=== PATIENT | female | born 1940 | race Caucasian/White ===

== ENCOUNTER 2016-10-28 13:36 | Outpatient (RCR) ==
[2016-10-28 14:20] VITALS: TEMP 98.1; BMI 35.4
[2016-11-11 14:30] VITALS: BP 118/64
== END 2016-11-25 ==
LOC: CAR.REHAB 13:36
PROVIDERS: ATTEND Internal Medicine
DX: I25.10 Atherosclerotic heart disease of native coronary artery without angina pectoris (principal); Z95.5 Presence of coronary angioplasty implant and graft
CPT/HCPCS: 93798

== ENCOUNTER 2016-11-26 09:15 | Outpatient (RCR) ==
[2016-12-20 14:41] VITALS: BP 108/60
== END 2016-12-26 ==
LOC: CAR.REHAB 09:15
PROVIDERS: ATTEND Internal Medicine
DX: I25.10 Atherosclerotic heart disease of native coronary artery without angina pectoris (principal); Z95.5 Presence of coronary angioplasty implant and graft; I20.9 Angina pectoris, unspecified
CPT/HCPCS: 93798

== ENCOUNTER 2016-12-12 12:01 | Outpatient (CLI) ==
--- NOTE | 2016-12-12 13:16 | DI ---
Exam: Three x-rays of the right foot. Comparison: None available. Reason for exam: Pain. FINDINGS: The imaged osseous structures are diffusely demineralized. No obvious fracture or malali gnment is seen. No unexplained calcific soft tissue densities or radiopaque retained foreign bodies . There is mild degenerative disease seen within the midfoot and phalanges. Impression: No acute fracture or dislocation in the right foot dilatation of the imaged osseous str uctures.
== END 2016-12-12 12:02 | disposition home or self-care (01) ==
LOC: RAD 12:01
PROVIDERS: ATTEND Family Medicine
DX: R52 Pain, unspecified (principal)

== ENCOUNTER 2016-12-27 07:53 | Outpatient (RCR) ==
[2017-01-20 11:54] VITALS: BP 128/58
== END 2017-01-25 ==
LOC: CAR.REHAB 07:53
PROVIDERS: ATTEND Internal Medicine
DX: I25.10 Atherosclerotic heart disease of native coronary artery without angina pectoris (principal); Z95.5 Presence of coronary angioplasty implant and graft; I20.9 Angina pectoris, unspecified
CPT/HCPCS: 93798

== ENCOUNTER 2017-02-26 09:13 | Outpatient (RCR) ==
[2017-03-24 11:57] VITALS: BP 108/58
== END 2017-03-27 ==
LOC: CAR.REHAB 09:13
PROVIDERS: ATTEND Internal Medicine
DX: I25.10 Atherosclerotic heart disease of native coronary artery without angina pectoris (principal); I20.9 Angina pectoris, unspecified; Z95.5 Presence of coronary angioplasty implant and graft
CPT/HCPCS: 93798

== ENCOUNTER 2017-03-28 06:37 | Outpatient (RCR) ==
[2017-04-25 11:46] VITALS: BP 134/56
== END 2017-04-27 ==
LOC: CAR.REHAB 06:37
PROVIDERS: ATTEND Internal Medicine
DX: I25.10 Atherosclerotic heart disease of native coronary artery without angina pectoris (principal); I20.9 Angina pectoris, unspecified; Z95.5 Presence of coronary angioplasty implant and graft
CPT/HCPCS: 93798

== ENCOUNTER 2017-04-29 08:18 | Outpatient (RCR) | payer OTHER ==
[2017-05-13 20:13] VITALS: BMI 36.6
== END 2017-05-28 ==
LOC: CAR.REHAB 08:18
PROVIDERS: ATTEND Internal Medicine
DX: I25.10 Atherosclerotic heart disease of native coronary artery without angina pectoris (principal); I20.9 Angina pectoris, unspecified; Z95.5 Presence of coronary angioplasty implant and graft

== ENCOUNTER 2017-05-13 15:10 | Inpatient (IN) | payer OTHER ==
[2017-05-13] MEDS ORDERED: DUONEB NEB STA ×2 (15:54→23:14)
--- NOTE | 2017-05-13 17:04 | CT ---
EXAM: CT chest without contrast HISTORY: Pain, cough COMPARISON: 07/02/2014 TECHNIQUE: CT chest performed without intravenous contrast. Coronal and sagittal reformatted images obtained FINDINGS: Thoracic inlet unremarkable. Heart normal in size. Coronary calcifications and/or stent. No pericardial effusion. Aorta normal in caliber. Mild atherosclerosis. Evaluation for lymphaden opathy limited without contrast. No lymphadenopathy identified. Status post right mastectomy. Vis ualized liver diffusely decreased in attenuation, incompletely imaged. No acute abnormalities of the bones. No suspicious lytic or blastic lesions identified. Degenerative change in the spine. Centr al airway patent. Bilateral lower airway thickening. Scattered subsegmental atelectasis and/or scar ring. No airspace consolidation. No pleural effusion. No pneumothorax. IMPRESSION: 1. Bilateral lower airway thickening, consistent with infectious/inflammatory bronchitis. Scattered subsegmental atelectasis and/or scarring. No airspace consolidation. 2. Coronary calcifications and/or stents. 3. Hepatic steatosis.
--- NOTE | 2017-05-13 17:19 | ED.PDOC ---
General ED Provider: Dr. JAROD MCCLELLAND Chief Complaint: Respiratory Complaint Stated Complaint: cough, wheez , flu like symptoms Time Seen by Physician: 03:20 (seen with nursing staff ) Mode of Arrival: Walk-In Information Source: Patient Exam Limitations: No limitations Primary Care Provider: EMMANUEL TATUM Referred to ED by: Other Nursing and Triage Documentation Reviewed and Agree: Yes (flu like symp with scattered wheez lives alone c/o weakness ) Reviewed sepsis parameters & appropriate labs ordered?: Yes System Inflammatory Response Syndrome: Not Applicable Sepsis Protocol: For patient's 13 years and over: Temp is 96.8 and below OR 101 and greater Pulse >90 BPM Resp >20/minute Acutely Altered Mental Status Are patient's symptoms suggestive of a new infection, such as: -Pneumonia -Skin, Soft Tissue -Endocarditis -UTI -Bone, Joint Infection -Implantable Device -Acute Abdominal Infection -Wound Infection -Meningitis -Blood Stream Catheter Infection -Unknown System Inflammatory Response Syndrome: Not Applicable Respiratory Complaint Exam - Respiratory Complaint/Exam Onset/Duration: 3 days getting worse Symptoms Are: Still present Timing: Intermittent Initial Severity: Moderate Current Severity: Moderate Location: Nose, Throat, Chest Character: Reports: Non-productive cough, Dry cough Aggravating: Reports: URI Alleviating: Reports: Bronchodilators Associated Signs and Symptoms: Reports: URI, Nasal congestion, Sore throat. Denies: Rapid breathing, Dyspnea, Fever, Chills, Chest pain, Pleuritic chest pain, Wheezing, Hemoptysis, Dizziness, Calf pain, Calf swelling, Edema, Hoarseness, Sinus discomfort, Vomiting, Weight loss, Decreased oral intake, Increased thirst, Increased appetite, Increased urination History of Healthcare-Acquired Pneumonia: No Related Surgical History: Reports: None Pulmonary Embolism Risk Factors: Bedrest Cardiac Risk Factors: Reports: Diabetes, Hypertension Pseudomonas Risk Factors: Reports: None Tuberculosis Risk Factors: Reports: None Status Asthmaticus Risk Factors: Reports: None Recent Stress Test: No Recent Echo/LV Function: No Current Antibiotic Use: No Current Asthma Medication Use: No Respiratory Distress: None Inadequate Respiratory Effort: No Dysphagia Present: No Stridor Present: No JVD Present: No Retractions: Not Present Diminished Breath Sounds: No Sinus Tenderness: None Grunting Respirations: No Kussmaul Respirations: No Differential Diagnoses: COPD Exacerbation, Pneumonia, Bronchitis, URI, Lower Resp. Infection Review of Systems - Review Of Systems Constitutional: Reports: No symptoms Eyes: Reports: No symptoms Ears, Nose, Mouth, Throat: Reports: No symptoms Respiratory: Reports: Cough, Wheezing Cardiac: Reports: No symptoms GI: Reports: No symptoms : Reports: No symptoms Musculoskeletal: Reports: No symptoms Skin: Reports: No symptoms Neurological: Reports: No symptoms Endocrine: Reports: No symptoms Hematologic/Lymphatic: Reports: No symptoms All Other Systems: Reviewed and Negative Past Medical History - Past Medical History Previously Healthy: Yes Endocrine: Reports: DM 2 Cardiovascular: Reports: Hypertension Respiratory: Reports: None Hematological: Reports: None Gastrointestinal: Reports: GERD Genitourinary: Reports: None Neuro/Psych: Reports: None Musculoskeletal: Reports: None Cancer: Reports: None Last Menstrual Period: menopause - Surgical History General Surgical History: Reports: None - Family History Family History: Reports: None - Social History Smoking Status: Never smoker Hx Substance Use: No Alcohol Screening: Occasionally Physical Exam - Physical Exam Appearance: Ill-appearing Ill-appearing: Moderate Pain Distress: Mild Eyes: DEVANTE, EOMI, Conjunctiva clear ENT: Ears normal, Nose normal, Oropharynx normal Respiratory: Breath sounds diminished, Wheezes Cardiovascular: RRR, Pulses normal, No rub, No murmur GI/: Soft, Nontender, No masses, Bowel sounds normal, No Organomegaly Musculoskeletal: Normal strength, ROM intact, No edema, No calf tenderness Skin: Warm, Dry, Normal color Neurological: Sensation intact, Motor intact, Reflexes intact, Cranial nerves intact, Alert, Oriented Psychiatric: Affect appropriate, Mood appropriate Interpretation - Radiology Interpretation Radiology Interpretation By: Radiologist Radiology Results: No acute changes Physician Notification - Case Discussed Physician Notified: sonam Time of Notification: 17:20 (admitt) Admit To: Inpatient Critical Care Note - Critical Care Note Total Time (mins): 0 Course - Course Hematology/Chemistry: 05/13/17 16:17 05/13/17 16:17 Orders, Labs, Meds: Lab Review 05/13/17 05/13/17 05/13/17 15:50 16:17 16:17 WBC 12.26 H RBC 4.14 L Hgb 12.5 Hct 38.0 MCV 91.8 MCH 30.2 MCHC 32.9 RDW Coeff of Misty 15.1 H Plt Count 205 Immature Gran % (Auto) 0.7 Neut % (Auto) 73.4 Lymph % (Auto) 13.4 [place] % (Auto) 6.9 Eos % (Auto) 5.2 Baso % (Auto) 0.4 Immature Gran # (Auto) 0.1 Neut # 9.0 H Lymph # 1.6 [place] # 0.8 Eos # 0.6 Baso # 0.1 Sodium 141 Potassium 4.0 Chloride 105 Carbon Dioxide 28 Anion Gap 12.0 BUN 20 H Creatinine 1.34 H Estimated GFR (MDRD) 39.00 BUN/Creatinine Ratio 14.92 Glucose 194 H Calcium 9.1 Total Bilirubin 0.5 AST 60 H ALT 41 Alkaline Phosphatase 93 Total Creatine Kinase 89 Troponin I 0.0220 Total Protein 7.0 Albumin 3.1 L Globulin 3.9 Albumin/Globulin Ratio 0.79 Influenza A (Rapid) Negative by naat Influenza B (Rapid) Negative by naat Orders Category Date Time Status EKG-(ED ONLY) Stat CARDIO 05/13/17 15:55 Completed NEBULIZER TREATMENT Stat CARDIO 05/13/17 15:54 Completed CBC W/ AUTO DIFF Stat LAB 05/13/17 16:17 Completed COMPREHENSIVE METABOLIC PANEL Stat LAB 05/13/17 16:17 Completed CREATINE KINASE Stat LAB 05/13/17 16:17 Completed FLU A/B MOLECULAR Stat LAB 05/13/17 15:50 Completed RAPID STREP SCREEN [MOLECULAR GROUP A STREP] Stat LAB 05/13/17 15:50 Completed TROPONIN I Stat LAB 05/13/17 16:17 Completed Ipratropium/Albuterol Neb [Duoneb] MEDS 05/13/17 15:54 Discontinued 1 vial NEB ONCE STA CT CHEST W/O CONTRAST Stat RADS 05/13/17 16:00 Completed Medications Discontinued Medications Generic Name Dose Route Start Last Admin Trade Name Freq PRN Reason Stop Dose Admin Albuterol/Ipratropium 1 vial 05/13/17 15:54 05/13/17 16:11 Duoneb NEB 05/13/17 15:55 1 vial ONCE STA Administration Vital Signs: Temp Pulse Resp BP Pulse Ox 05/13/17 15:10 98.2 F 88 20 133/79 93 L Departure - Departure Time of Disposition: 17:20 Disposition: ADMITTED INPATIENT Discharge Problem: Sore throat symptom, Viral syndrome, Weakness generalized Instructions: Viral Syndrome (ED) Condition: Good Pt referred to PMD for follow-up: Yes IPMP verified?: Yes Additional Instructions: Please call your Family Physician as soon as possible to schedule a follow-up appointment. Allergies/Adverse Reactions: Allergies albuterol Adverse Reaction (Verified 05/13/17 15:19) cefaclor [From Ceclor] Adverse Reaction (Verified 05/13/17 15:19) Home Medications: Ambulatory Orders Alprazolam [Xanax Xr] 0.25 mg PO BID 08/16/13 Fluticasone/Salmeterol [Advair Hfa 115-21 Mcg Inhaler] 12 gm IH BID 08/16/13 Hydroxyzine HCl [Atarax] 1 - 2 tab PO QID PRN 08/16/13 Insulin Glargine,Hum.rec.anlog [Lantus] 36 unit SUBCUT BEDTIME 08/16/13 Ipratropium Declo [Atrovent Hfa] 2 puff IH TID 08/16/13 Levothyroxine Sodium [Synthroid] 125 mcg PO DAILY 08/16/13 Omeprazole [Prilosec] 20 mg PO BIDAC 08/16/13 Azelastine/Fluticasone [Dymista Nasal [place]] 2 spray NS BID 07/02/14 Insulin Aspart [Novolog] 8 unit SQ DIRECTED 07/02/14 Temazepam [Restoril] 15 mg PO BID 07/02/14 Naproxen [Naprosyn] 500 mg PO twice a day 06/28/15 Atorvastatin Calcium [Lipitor] 80 mg PO DAILY 05/13/17 Cholecalciferol (Vitamin D3) [Vitamin D3] 5,000 unit PO MONTHLY 05/13/17 Ferrous Sulfate 325 mg PO DAILY 05/13/17 Furosemide [Lasix Tab] 20 mg PO DIRECTED 05/13/17 Isosorbide Mononitrate [Imdur] 30 mg PO DAILY 05/13/17 Ticagrelor [Brilinta] 90 mg PO BID 05/13/17 Disposition Discussed With: Patient
[2017-05-13] MEDS ORDERED: LASIX TAB PO SCH (17:30)
[2017-05-13 20:13] VITALS: BMI 36.6
[2017-05-13] MEDS ORDERED: FLUTICASONE NS SCH (21:00)
[2017-05-13] MEDS: SODIUM CHLORIDE 1,000 ML IV SCH (21:00)
[2017-05-13] MEDS ORDERED: AZELASTINE NS SCH (21:00)
[2017-05-14] MEDS: ALPRAZOLAM 0.25 MG PO SCH ×2 (00:49→10:48)
[2017-05-14] MEDS: RESTORIL PO SCH ×2 (00:50→10:48)
[2017-05-14] MEDS: BRILINTA PO SCH ×3 (00:50→21:05)
[2017-05-14] MEDS: SOLU-MEDROL 40 MG IVP SCH ×3 (00:51→21:05)
[2017-05-14] MEDS: PRILOSEC PO SCH ×2 (06:00→16:51)
[2017-05-14] MEDS ORDERED: NON-FORMULARY MEDICATION (Levothyroxine Sodium [Synthroid] 125 MCG) PO SCH (09:00)
[2017-05-14] MEDS ORDERED: NON-FORMULARY MEDICATION (Atorvastatin Calcium [Lipitor] 80 MG) PO SCH (09:00)
[2017-05-14] MEDS: LOPRESSOR PO SCH ×2 (10:46→16:51)
[2017-05-14] MEDS: LIPITOR PO SCH (10:46)
[2017-05-14] MEDS: SYNTHROID PO SCH ×2 (10:46)
[2017-05-14] MEDS: ASPIRIN EC PO SCH (10:46)
[2017-05-14] MEDS: LEXAPRO PO SCH (10:47)
[2017-05-14] MEDS: AZELASTINE NS SCH ×2 (10:47→21:05)
[2017-05-14] MEDS: FLUTICASONE NS SCH ×2 (10:47→21:05)
[2017-05-14] MEDS: ROCEPHIN 1 GM in SODIUM CHLORIDE 50 ML IV SCH (10:47)
[2017-05-14] MEDS: NON-FORMULARY MEDICATION (Tamoxifen Citrate [Tamoxifen Citrate] 20 MG) PO SCH (10:48)
[2017-05-14] MEDS: LASIX TAB PO SCH (10:53)
[2017-05-14] MEDS: SODIUM CHLORIDE 1,000 ML IV SCH (11:47)
[2017-05-14] MEDS: HUMULIN R SUBCUT PRN ×2 (16:57→23:54)
[2017-05-14] MEDS ORDERED: NON-FORMULARY MEDICATION (Alprazolam [Xanax] 1 MG) PO SCH (21:00)
[2017-05-14] MEDS: XANAX PO SCH (21:06)
[2017-05-14] MEDS: SINGULAIR PO SCH (21:06)
[2017-05-14] MEDS: SYMBICORT 160-4.5 MCG INHALER IH SCH (21:13)
[2017-05-14] MEDS ORDERED: XOPENEX 1.25 MG NEB ONE (22:48)
[2017-05-14] MEDS: XOPENEX 1.25 MG NEB SCH (22:48)
[2017-05-15] MEDS: SYMBICORT 160-4.5 MCG INHALER IH SCH ×3 (00:46→21:30)
[2017-05-15] MEDS: XOPENEX 1.25 MG NEB SCH ×4 (05:12→22:50)
[2017-05-15] MEDS: SOLU-MEDROL 40 MG IVP SCH ×3 (06:23→21:29)
[2017-05-15] MEDS: PRILOSEC PO SCH ×2 (06:23→16:24)
[2017-05-15] MEDS: SYNTHROID PO SCH ×2 (06:23)
[2017-05-15] MEDS: HUMULIN R SUBCUT PRN ×4 (06:49→21:30)
[2017-05-15] MEDS: NON-FORMULARY MEDICATION (Tamoxifen Citrate [Tamoxifen Citrate] 20 MG) PO SCH (08:55)
[2017-05-15] MEDS: LIPITOR PO SCH (08:56)
[2017-05-15] MEDS: XANAX PO SCH ×2 (08:57→21:29)
[2017-05-15] MEDS: LEXAPRO PO SCH (08:57)
[2017-05-15] MEDS: ASPIRIN EC PO SCH (08:57)
[2017-05-15] MEDS: BRILINTA PO SCH ×2 (08:57→21:29)
[2017-05-15] MEDS: LOPRESSOR PO SCH ×2 (08:57→16:29)
[2017-05-15] MEDS: ROCEPHIN 1 GM in SODIUM CHLORIDE 50 ML IV SCH (08:58)
[2017-05-15] MEDS: SODIUM CHLORIDE 1,000 ML IV SCH (08:58)
[2017-05-15] MEDS: LOVENOX SUBCUT SCH (08:59)
--- NOTE | 2017-05-15 10:34 | HP ---
CHIEF COMPLAINT: "I can't breath and I'm wheezing." DISCUSSION: This is a 76 year old lady with a history of asthma, coronary artery disease and breast cancer who presented to the emergency department with flu like symptoms of low grade fever, cough, wheezing and shortness of breath. Her cough was productive of scant yellowish sputum without hemoptysis. She was dyspneic whenever she ambulated a few feet. She was seen in the emergency department by Dr. Reynoso who felt the patient needed to be admitted due to wheezing therefore was admitted to my services. PAST MEDICAL HISTORY: MEDICATIONS: Xanax Advair Atarax Lantus Atrovent Synthroid Prilosec Dymista NovoLog Restoril Lipitor Vitamin D3 Ferrous sulfate Lasix Imdur Brilinta ALLERGIES: Albuterol Cefaclor PAST MEDICAL HISTORY: History of anxiety History of asthma History of type two diabetes, insulin treated Hypothyroidism GERD Chronic insomnia Hyperlipidemia Coronary artery disease status post stent placement PAST SURGICAL HISTORY: Mastectomy Hysterectomy Tubal ligation Appendectomy SOCIAL HISTORY: No history of tobacco or illicit drug use. She has used alcohol occasionally on a social basis. FAMILY HISTORY: Reviewed and thought not to be pertinent to discussion. REVIEW OF SYSTEMS: No headaches, visual changes, tinnitus, hemoptysis, blood in the stool, urinary symptoms or seizures. PHYSICAL EXAMINATION: V/S: Temperature 98.3, pulse 88, respiratory 20, blood pressure 130/79 and oxygen saturation is slightly low at 93% GENERAL: Confirms that a 76 year old woman appears her stated age. She is alert and oriented times three. HEENT: Pupils are round. NECK: Supple. CHEST: Defused expiratory wheeze. CARDIOVASCULAR: Regular rate and rhythm. ABDOMEN: Soft, nontender. EXTREMITIES: Distal extremities without cyanosis or edema. ASSESSMENT: 1. Exacerbation of asthma with asthmatic bronchitis 2. Coronary artery disease 3. Insulin treated type 2 diabetes PLAN: 1. Admission 2. IV steroids 3. Bronchial dilators 4. Antibiotics 5. Please see orders. MTDD
--- NOTE | 2017-05-15 10:39 | PN ---
DATE OF VISIT: 05/15/17 SUBJECTIVE: Deepti is feeling better. Her wheezing seems to be bated. REVIEW OF SYSTEMS: She has no fever and no chills. Her appetite is good. PHYSICAL EXAMINATION: VITAL SIGNS: Temperature 99, pulse 90, respiratory 16 and unlabored, blood pressure 130/85. HEENT: Pupils are round NECK: Supple CHEST: Expiratory wheezes are improved CARDIOVASCULAR: Regular rate and rhythm ABDOMEN: Soft, nontender EXTREMITIES: Distal extremities without cyanosis or edema. ASSESSMENT: 1. Asthmatic bronchitis PLAN: 1. Continue antibiotics, steroids, bronchial dilators 2. Will begin to wean steroids tomorrow. Please seen orders. MTDD
[2017-05-15] MEDS: FLUTICASONE NS SCH ×2 (15:14→21:29)
[2017-05-15] MEDS: AZELASTINE NS SCH ×2 (15:14→21:29)
[2017-05-15] MEDS: SINGULAIR PO SCH (21:36)
[2017-05-16] MEDS: XOPENEX 1.25 MG NEB SCH ×4 (04:14→23:20)
[2017-05-16] MEDS: SOLU-MEDROL 40 MG IVP SCH ×3 (06:04→20:56)
[2017-05-16] MEDS: SYNTHROID PO SCH ×2 (06:04)
[2017-05-16] MEDS: PRILOSEC PO SCH ×2 (06:04→18:11)
[2017-05-16] MEDS: HUMULIN R SUBCUT PRN (06:26)
[2017-05-16] MEDS: ASPIRIN EC PO SCH (08:06)
[2017-05-16] MEDS: LOPRESSOR PO SCH ×2 (08:06→18:11)
[2017-05-16] MEDS: SYMBICORT 160-4.5 MCG INHALER IH SCH ×2 (09:12→20:56)
[2017-05-16] MEDS: ROCEPHIN 1 GM in SODIUM CHLORIDE 50 ML IV SCH (09:13)
[2017-05-16] MEDS: NON-FORMULARY MEDICATION (Tamoxifen Citrate [Tamoxifen Citrate] 20 MG) PO SCH (09:18)
[2017-05-16] MEDS: LIPITOR PO SCH (09:19)
[2017-05-16] MEDS: BRILINTA PO SCH ×2 (09:19→20:57)
[2017-05-16] MEDS: LEXAPRO PO SCH (09:20)
[2017-05-16] MEDS: XANAX PO SCH ×2 (09:20→20:57)
[2017-05-16] MEDS: LASIX TAB PO SCH (09:20)
[2017-05-16] MEDS: LOVENOX SUBCUT SCH (09:21)
[2017-05-16] MEDS: AZELASTINE NS SCH ×2 (09:23→20:58)
[2017-05-16] MEDS: FLUTICASONE NS SCH ×2 (09:23→20:58)
[2017-05-16] MEDS: IMDUR PO SCH (11:26)
[2017-05-16] MEDS: TRADJENTA PO SCH (11:26)
[2017-05-16] MEDS: HUMALOG SUBCUT SCH ×2 (12:11→18:11)
[2017-05-16] MEDS: NORCO 5-325 PO PRN (15:07)
[2017-05-16] MEDS: REMERON PO SCH (20:57)
[2017-05-16] MEDS: INSULIN DEGLUDEC 200 UNIT SQ SCH (20:57)
[2017-05-16] MEDS: SINGULAIR PO SCH (20:57)
[2017-05-17] MEDS: XOPENEX 1.25 MG NEB SCH ×3 (05:20→16:52)
[2017-05-17] MEDS: PRILOSEC PO SCH ×2 (05:40→17:52)
[2017-05-17] MEDS: SYNTHROID PO SCH ×2 (05:40)
[2017-05-17] MEDS: HUMALOG SUBCUT SCH ×3 (09:25→17:52)
[2017-05-17] MEDS: ASPIRIN EC PO SCH (09:25)
[2017-05-17] MEDS: TRADJENTA PO SCH (09:26)
[2017-05-17] MEDS: XANAX PO SCH ×2 (09:26→21:55)
[2017-05-17] MEDS: LIPITOR PO SCH (09:26)
[2017-05-17] MEDS: LOPRESSOR PO SCH ×2 (09:27→17:52)
[2017-05-17] MEDS: IMDUR PO SCH (09:27)
[2017-05-17] MEDS: LEXAPRO PO SCH (09:27)
[2017-05-17] MEDS: BRILINTA PO SCH ×2 (09:27→21:48)
[2017-05-17] MEDS: SOLU-MEDROL 40 MG IVP SCH ×2 (09:27→21:54)
[2017-05-17] MEDS: NON-FORMULARY MEDICATION (Tamoxifen Citrate [Tamoxifen Citrate] 20 MG) PO SCH (09:28)
[2017-05-17] MEDS: LOVENOX SUBCUT SCH (09:29)
[2017-05-17] MEDS: FLUTICASONE NS SCH ×2 (09:32→21:56)
[2017-05-17] MEDS: AZELASTINE NS SCH ×2 (09:32→21:56)
[2017-05-17] MEDS: SYMBICORT 160-4.5 MCG INHALER IH SCH ×2 (09:34→21:54)
[2017-05-17] MEDS: ROCEPHIN 1 GM in SODIUM CHLORIDE 50 ML IV SCH (09:34)
[2017-05-17] MEDS: NORCO 5-325 PO PRN ×2 (12:40→21:56)
[2017-05-17] MEDS: INSULIN DEGLUDEC 200 UNIT SQ SCH (21:52)
[2017-05-17] MEDS: REMERON PO SCH (21:54)
[2017-05-17] MEDS: SINGULAIR PO SCH (21:54)
[2017-05-18] MEDS: XOPENEX 1.25 MG NEB SCH ×2 (00:09→04:54)
[2017-05-18] MEDS: PRILOSEC PO SCH (05:50)
[2017-05-18] MEDS: SYNTHROID PO SCH ×2 (05:50→05:51)
[2017-05-18] MEDS: AZELASTINE NS SCH (09:35)
[2017-05-18] MEDS: FLUTICASONE NS SCH (09:35)
[2017-05-18 10:18] VITALS: BP 114/68; TEMP 97.6
[2017-05-18] MEDS: HUMALOG SUBCUT SCH (10:23)
[2017-05-18] MEDS: NON-FORMULARY MEDICATION (Tamoxifen Citrate [Tamoxifen Citrate] 20 MG) PO SCH (10:23)
[2017-05-18] MEDS: SYMBICORT 160-4.5 MCG INHALER IH SCH (10:23)
[2017-05-18] MEDS: TRADJENTA PO SCH (10:24)
[2017-05-18] MEDS: LOVENOX SUBCUT SCH (10:24)
[2017-05-18] MEDS: LIPITOR PO SCH (10:24)
[2017-05-18] MEDS: BRILINTA PO SCH (10:24)
[2017-05-18] MEDS: ASPIRIN EC PO SCH (10:24)
[2017-05-18] MEDS: SOLU-MEDROL 40 MG IVP SCH (10:25)
[2017-05-18] MEDS: IMDUR PO SCH (10:25)
[2017-05-18] MEDS: ROCEPHIN 1 GM in SODIUM CHLORIDE 50 ML IV SCH (10:25)
[2017-05-18] MEDS: LOPRESSOR PO SCH (10:25)
[2017-05-18] MEDS: LEXAPRO PO SCH (10:25)
[2017-05-18] MEDS: XANAX PO SCH (10:25)
[2017-05-19] MEDS ORDERED: LASIX TAB PO SCH (06:30)
--- NOTE | 2017-05-19 10:47 | DS ---
PRINCIPAL DIAGNOSIS: 1.Asthmatic bronchitis DISCUSSION: 76 year old lady who was admitted with viral upper respiratory infection type of symptoms with cough and wheezing. She was seen the emergency department and in conjunction with Dr. Gibson who was family nurse practitioner for me the patient was admitted with steroids, bronchial dilators for a treatment of an underline bronchitis. CLINICAL COURSE: Deepti did very well. we were able to wean her IV steroids and continue bronchial dilatory therapy. Her activity increased. At time of discharge she was ambulatory in the [facility] without significant dyspnea. She had no hemoptysis. I discussed the case with her daughter, Racheal. At this point the patient was discharge on antibiotics, Mucinex as well as Prednisone. She will continue all her NEBS at home. She is going to followup with me in one week in the office. KASSANDRA
--- NOTE | 2017-05-19 10:53 | PN ---
DATE OF VISIT: 05/16/17 SUBJECTIVE: Pamela continues to improved in terms in of her cough and wheezing. She has been afebrile. REVIEW OF SYSTEMS: PHYSICAL EXAMINATION: VITALS: Temperature 98, pulse 80, respiratory rate 18, blood pressure 130/80. HEENT: Pupils are round NECK: Supple CHEST: Markedly improved with decreased expiratory wheezing. CARDIOVASCULAR: Regular rate and rhythm ABDOMEN: Soft, nontender EXTREMITIES: Distal extremities without cyanosis or edema ASSESSMENT: 1. Asthmatic bronchitis PLAN: 1. Wean steroids, diminished dose MTDD
--- NOTE | 2017-05-19 11:00 | PN ---
DATE OF VISIT: 05/17/17 SUBJECTIVE: Pamela has tolerated the reduction of IV nicely. She has had no increased wheezing or shortness of breath. She is ambulatory in the [facility] [address]. PHYSICAL EXAMINATION: VITALS: Temperature 99.9, pulse 85, respiratory 18, blood pressure 130/90 HEENT: Pupils are round NECK: Supple CHEST: Minimal scattered wheezes that clear with cough CARDIOVASCULAR: Regular rate and rhythm ABDOMEN: Soft, nontender EXTREMITIES: Distal extremities without cyanosis or edema. ASSESSMENT: 1. Asthmatic bronchitis PLAN: 1. Continue to wean steroids 2. Anticipate discharge tomorrow. TAND
== END 2017-05-18 13:08 | disposition home or self-care (01) | DRG 203 ==
LOC: ED 15:10 → MEDSURG B 17:44
PROVIDERS: ADMIT Family Medicine; ATTEND Family Medicine
DX: J45.901 Unspecified asthma with (acute) exacerbation (principal); B34.9 Viral infection, unspecified; J02.9 Acute pharyngitis, unspecified; R53.1 Weakness; R06.02 Shortness of breath; E11.9 Type 2 diabetes mellitus without complications; Z79.4 Long term (current) use of insulin; Z79.899 Other long term (current) drug therapy
CPT/HCPCS: 36415; 80053; 82550; 82553; 82962; 84484; 85025; 87502; 87651; 93005; 93010; 94640; 99284

== ENCOUNTER 2017-05-29 07:23 | Outpatient (RCR) | payer OTHER ==
[2017-06-23 12:06] VITALS: BP 118/56
== END 2017-06-25 ==
LOC: CAR.REHAB 07:23
PROVIDERS: ATTEND Internal Medicine
DX: I25.10 Atherosclerotic heart disease of native coronary artery without angina pectoris (principal); I20.9 Angina pectoris, unspecified; Z95.5 Presence of coronary angioplasty implant and graft
CPT/HCPCS: 93798

== ENCOUNTER 2017-06-26 08:19 | Outpatient (RCR) ==
[2017-07-21 11:55] VITALS: BP 110/50
== END 2017-07-26 ==
LOC: CAR.REHAB 08:19
PROVIDERS: ATTEND Internal Medicine
DX: I25.10 Atherosclerotic heart disease of native coronary artery without angina pectoris (principal); I20.9 Angina pectoris, unspecified; Z95.5 Presence of coronary angioplasty implant and graft
CPT/HCPCS: 93798

== ENCOUNTER 2017-07-28 07:01 | Outpatient (RCR) | END 2017-08-25 23:59 | LOC: CAR.REHAB 07:01 | PROVIDERS: ATTEND Internal Medicine | DX: I25.10 Atherosclerotic heart disease of native coronary artery without angina pectoris (principal); Z95.5 Presence of coronary angioplasty implant and graft ==

== ENCOUNTER 2017-08-26 07:39 | Outpatient (RCR) | END 2017-09-25 23:59 | LOC: CAR.REHAB 07:39 | PROVIDERS: ATTEND Internal Medicine | DX: I25.10 Atherosclerotic heart disease of native coronary artery without angina pectoris (principal); I20.9 Angina pectoris, unspecified; Z95.5 Presence of coronary angioplasty implant and graft ==

== ENCOUNTER 2017-09-26 07:42 | Outpatient (RCR) ==
[2017-09-29 13:37] VITALS: BP 116/56
== END 2017-10-25 23:59 ==
LOC: CAR.REHAB 07:42
PROVIDERS: ATTEND Internal Medicine
DX: I25.10 Atherosclerotic heart disease of native coronary artery without angina pectoris (principal); I20.9 Angina pectoris, unspecified; Z95.5 Presence of coronary angioplasty implant and graft
CPT/HCPCS: 93798

== ENCOUNTER 2017-10-27 07:25 | Outpatient (RCR) | payer OTHER | END 2017-11-13 13:54 | disposition home or self-care (01) | LOC: CAR.REHAB 07:25 | PROVIDERS: ATTEND Internal Medicine | DX: I25.10 Atherosclerotic heart disease of native coronary artery without angina pectoris (principal); Z95.5 Presence of coronary angioplasty implant and graft; I20.9 Angina pectoris, unspecified ==

== ENCOUNTER 2018-02-20 17:23 | Emergency (ER) | payer OTHER ==
[2018-02-20 17:28] VITALS: BP 135/85; TEMP 98.8; BMI 33.6
--- NOTE | 2018-02-20 18:02 | ED.PDOC ---
General <ROSARIOEMMANUEL - Last Filed: 02/20/18 18:53> Stated Complaint: RIGHT SIDED C/P AT REST Time Seen by Physician: 17:30 Mode of Arrival: Walk-In Information Source: Patient Exam Limitations: No limitations Nursing and Triage Documentation Reviewed and Agree: Yes Does patient meet sepsis criteria?: No System Inflammatory Response Syndrome: Not Applicable <STASJAROD - Last Filed: 02/23/18 15:31> ED Provider: Dr. JAROD MCCLELLAND Chief Complaint: Shortness of Air Primary Care Provider: EMMANUEL TATUM Sepsis Protocol: For patient's 13 years and over: Temp is 96.8 and below OR 101 and greater Pulse >90 BPM Resp >20/minute Acutely Altered Mental Status Are patient's symptoms suggestive of a new infection, such as: -Pneumonia -Skin, Soft Tissue -Endocarditis -UTI -Bone, Joint Infection -Implantable Device -Acute Abdominal Infection -Wound Infection -Meningitis -Blood Stream Catheter Infection -Unknown Cardiovascular Complaint Exam - Chest Pain Complaint/Exam Onset: Gradual Duration: 1 HR Symptoms Are: Still present Timing: Constant Initial Severity: Mild Current Severity: Mild Location: Reports: Discrete, Midsternal, Right anterior Pain Radiates: Reports: None Character: Reports: Dull, Aching Aggravating: Reports: None Alleviating: Reports: Rest Associated Signs and Symptoms: Denies: Diaphoresis, Nausea, Vomiting, Fever, Palpitations, Cough, Hemoptysis, Back pain, Abdominal pain, Dizziness, Short of air, Calf pain, Calf swelling Related History: Reports: Similar episode Related Surgical History: Reports: None History of Healthcare-Acquired Pneumonia: Reports: No AMI/ACS Risk Factors: Reports: Sedentary, Hypertension TAD Risk Factors: Reports: Hypertension Pulmonary Embolism Risk Factors: Reports: None Prior Care for this Complaint: Yes Recent Stress Test: No Recent Echo/LV Function: No JVD Present: No Subcutaneous Emphysema Present: No Diminshed Breath Sounds: No Reproducible Chest Wall Pain: No Bilateral Pulses Present: Yes Unequal Pulses Noted: No If Risk Factors for AMI/ACS Consider: EKG, Cardiac Enzymes Differential Diagnoses: Stable Angina, GI Diseasae, Lower Resp. Infection Quality Indicators For Acute MS or Cardiac Chest Pain: EKG in 10min. Quality Indicator For Non-Traumatic Chest Pain/Syncope: EKG Performed Quality Indicators For Pneumonia/CAP: Antibiotics in 6hr-admit, SpO2 assessed, Mental status assessed <JAROD MCCLELLAND Filed: 02/23/18 15:31> Review of Systems - Review Of Systems Constitutional: Reports: No symptoms Eyes: Reports: No symptoms Ears, Nose, Mouth, Throat: Reports: No symptoms Respiratory: Reports: No symptoms Cardiac: Reports: Chest pain GI: Reports: No symptoms : Reports: No symptoms Musculoskeletal: Reports: No symptoms Skin: Reports: No symptoms Neurological: Reports: No symptoms Endocrine: Reports: No symptoms Hematologic/Lymphatic: Reports: No symptoms All Other Systems: Reviewed and Negative <JAROD MCCLELLAND Last Filed: 02/23/18 15:31> Past Medical History - Past Medical History Previously Healthy: Yes Endocrine: Reports: DM 2 Cardiovascular: Reports: Hypertension Respiratory: Reports: None Hematological: Reports: None Gastrointestinal: Reports: GERD Genitourinary: Reports: None Neuro/Psych: Reports: None Musculoskeletal: Reports: None Cancer: Reports: None Last Menstrual Period: none - Surgical History General Surgical History: Reports: None - Family History Family History: Reports: None - Social History Smoking Status: Never smoker Hx Substance Use: No Alcohol Screening: Occasionally <JAROD MCCLELLAND Filed: 02/23/18 15:31> Physical Exam - Physical Exam Appearance: Well-appearing, No pain distress, Well-nourished Eyes: DEVANTE, EOMI, Conjunctiva clear ENT: Ears normal, Nose normal, Oropharynx normal Respiratory: Airway patent, Breath sounds clear, Breath sounds equal, Respirations nonlabored Cardiovascular: RRR, Pulses normal, No rub, No murmur GI/: Soft, Nontender, No masses, Bowel sounds normal, No Organomegaly Musculoskeletal: Normal strength, ROM intact, No edema, No calf tenderness Skin: Warm, Dry, Normal color Neurological: Sensation intact, Motor intact, Reflexes intact, Cranial nerves intact, Alert, Oriented Psychiatric: Affect appropriate, Mood appropriate <JAROD MCCLELLAND Last Filed: 02/23/18 15:31> Interpretation - Radiology Interpretation Radiology Interpretation By: Radiologist Radiology Results: No acute changes - Evs Tech Rate: Normal Rhythm: Sinus Ectopy: None - EKG Interpretation Rate: Normal Rhythm: Sinus <JAROD MCCLELLAND Filed: 02/23/18 15:31> Critical Care Note - Critical Care Note Total Time (mins): 0 <LYUBOVMICHELLEJAROD Romero Filed: 02/23/18 15:31> Course - Course Hematology/Chemistry: 02/20/18 18:01 02/20/18 18:01 <EMMANUEL PONCE - Last Filed: 02/20/18 18:53> - Course Hematology/Chemistry: 02/20/18 18:01 02/20/18 18:01 <JAROD MCCLELLAND - Last Filed: 02/23/18 15:31> - Course Orders, Labs, Meds: Lab Review 02/20/18 02/20/18 02/20/18 17:40 17:58 18:01 WBC 14.68 H RBC 4.09 L Hgb 12.0 Hct 37.0 MCV 90.5 MCH 29.3 MCHC 32.4 RDW Coeff of Misty 14.6 Plt Count 222 Immature Gran % (Auto) 0.7 Neut % (Auto) 70.9 Lymph % (Auto) 19.1 [place] % (Auto) 5.7 Eos % (Auto) 3.3 Baso % (Auto) 0.3 Immature Gran # (Auto) 0.1 Neut # (Auto) 10.4 H Lymph # (Auto) 2.8 [place] # (Auto) 0.8 Eos # (Auto) 0.5 Baso # (Auto) 0.1 D-Dimer (Manual) 1503.30 Puncture Site Lbrach O2 Saturation 96.0 ABG pH 7.424 ABG pCO2 35.1 ABG pO2 78.0 L ABG HCO3 23.0 ABG Total CO2 24 ABG Base Excess -1 FiO2 % 21.0 Sodium Potassium Chloride Carbon Dioxide Anion Gap BUN Creatinine Estimated GFR (MDRD) BUN/Creatinine Ratio Glucose Calcium Total Bilirubin AST ALT Alkaline Phosphatase Total Creatine Kinase Troponin I Total Protein Albumin Globulin Albumin/Globulin Ratio 02/20/18 18:01 WBC RBC Hgb Hct MCV MCH MCHC RDW Coeff of Misty Plt Count Immature Gran % (Auto) Neut % (Auto) Lymph % (Auto) [place] % (Auto) Eos % (Auto) Baso % (Auto) Immature Gran # (Auto) Neut # (Auto) Lymph # (Auto) [place] # (Auto) Eos # (Auto) Baso # (Auto) D-Dimer (Manual) Puncture Site O2 Saturation ABG pH ABG pCO2 ABG pO2 ABG HCO3 ABG Total CO2 ABG Base Excess FiO2 % Sodium 136.8 L Potassium 4.13 Chloride 101.0 Carbon Dioxide 29.1 Anion Gap 10.83 BUN 13.6 Creatinine 0.97 Estimated GFR (MDRD) 56.00 BUN/Creatinine Ratio 14.02 Glucose 332.5 H Calcium 8.98 Total Bilirubin 0.39 AST 49.4 H ALT 28.5 Alkaline Phosphatase 90.3 Total Creatine Kinase 45.7 Troponin I < 0.012 Total Protein 7.13 Albumin 3.88 Globulin 3.25 Albumin/Globulin Ratio 1.19 Orders Category Date Time Status ABG DRAW REQUEST Stat CARDIO 02/20/18 17:58 Completed EKG-(ED ONLY) Stat CARDIO 02/20/18 17:57 Completed EKG-(ED ONLY) Stat CARDIO 02/20/18 18:30 Completed TRANSFER TO OUTSIDE FACILITY .TO [facility] ( CARE 02/20/18 18:54 Active [place], [place]) WRITE TRANSFER/SBAR NOTE ONCE CARE 02/20/18 18:54 Completed DISCHARGE ASSESSMENT ONCE DISCHARGE 02/20/18 18:54 Completed WRITE DISCHARGE NOTE ONCE DISCHARGE 02/20/18 18:54 Completed ABG Stat LAB 02/20/18 17:58 Completed CBC W/ AUTO DIFF Stat LAB 02/20/18 18:01 Completed COMPREHENSIVE METABOLIC PANEL Stat LAB 02/20/18 18:01 Completed CREATINE KINASE Stat LAB 02/20/18 18:01 Completed D-DIMER Stat LAB 02/20/18 17:40 Completed TROPONIN I Stat LAB 02/20/18 18:[address] CHEST W/O CONTRAST Stat RADS 02/20/18 17:57 Completed Vital Signs: Temp Pulse Resp BP Pulse Ox 02/20/18 17:24 98.8 F 89 20 135/85 95 LISBETH Risk Score: Risk Score Odds of by 30D 0 0.1 (0.1-0.2) 1 0.3 (0.2-0.3) 2 0.4 (0.3-0.5) 3 0.7 (0.6-0.9) 4 1.2 (1.0-1.5) 5 2.2 (1.9-2.6) 6 3.0 (2.5-3.6) 7 4.8 (3.8-6.1) Departure - Departure Transfer Form Completed: Yes Disposition Discussed With: Patient <RC-EMMANUEL NORIEGA - Last Filed: 02/20/18 18:53> - Departure Time of Disposition: 19:00 Pt referred to PMD for follow-up: Yes IPMP verified?: No <JAROD MCCLELLAND - Last Filed: 02/23/18 15:31> - Departure Disposition: HOME SELF-CARE Discharge Problem: Chest pain Qualifiers: Chest pain type: unspecified Qualified Code(s): R07.9 - Chest pain, unspecified Instructions: Chest Pain (DC) Condition: Good Additional Instructions: Please call your Family Physician as soon as possible to schedule a follow-up appointment. Allergies/Adverse Reactions: Allergies albuterol Adverse Reaction (Verified 02/20/18 17:29) cefaclor [From Ceclor] Adverse Reaction (Verified 02/20/18 17:29) Home Medications: Ambulatory Orders Fluticasone/Salmeterol [Advair Hfa 115-21 Mcg Inhaler] 12 gm IH BID 08/16/13 Omeprazole [Prilosec] 20 mg PO BIDAC 08/16/13 Aspirin [Aspir-Low] 81 mg PO DAILY 05/13/17 Atorvastatin Calcium [Lipitor] 80 mg PO DAILY 05/13/17 Cholecalciferol (Vitamin D3) [Vitamin D3] 5,000 unit PO MONTHLY 05/13/17 Escitalopram Oxalate [Lexapro] 10 mg PO DAILY 05/13/17 Ferrous Sulfate 325 mg PO DAILY 05/13/17 Furosemide [Lasix Tab] 20 mg PO MOWEFR PRN 05/13/17 Isosorbide Mononitrate [Imdur] 30 mg PO DAILY 05/13/17 Linagliptin [Tradjenta] 5 mg PO DAILY 05/13/17 Metoprolol Tartrate 25 mg PO BID 05/13/17 Montelukast Sodium [Singulair] 10 mg PO BEDTIME 05/13/17 Tamoxifen Citrate 20 mg PO DAILY 05/13/17 Ticagrelor [Brilinta] 90 mg PO BID 05/13/17 Levothyroxine Sodium [Synthroid] 50 mcg PO QDAC 05/16/17 Calcium Carbonate/Vitamin D3 [Calcium 500 + Vit D3 400 Tab] 1 each PO DAILY Docusate Sodium [Colace] 100 mg PO DIRECTED 02/20/18 Ergocalciferol (Vitamin D2) [Drisdol] 50,000 unit PO DIRECTED 02/20/18 Hydrocodone Bit/Acetaminophen [[place] 7.5-325] 1 tab PO PRN PRN 02/20/18 Insulin Regular, Human [Humulin R U-500 Kwikpen] 50 unit SQ 1200 02/20/18 Insulin Regular, Human [Humulin R U-500 Kwikpen] 80 unit SQ 0800 02/20/18 Insulin Regular, Human [Humulin R U-500 Kwikpen] 80 unit SQ 1700 02/20/18 Nitroglycerin [Nitrostat] 0.4 mg SL Q5MIN X 3 DOSES PRN 02/20/18
--- NOTE | 2018-02-20 18:46 | CT ---
EXAM: CT scan thorax without contrast HISTORY: Chest pain cough COMPARISON: CT scan thorax 05/13/2017 FINDINGS: Contiguous axial images obtained through the thorax without contrast utilizing 5-mm collim ation. Sagittal and coronal reconstructions were imaged and reviewed.. The thoracic inlet is unrema rkable.. There is no evidence of mediastinal lymphadenopathy. The ascending aorta is ectatic measur ing 3.1 cm. There is coronary calcification. A stent is seen within the LAD.. There has been prior right mastectomy.. There is minimal atelectasis seen within the right middle lobe, lingula and both posterior gutter regions. There is no evidence of consolidation or effusion. Fatty infiltration is seen within the visualized liver. The adrenal glands are normal.. Degenerative changes are seen in the mid dorsal spine. IMPRESSION: Coronary artery calcification and stents without pericardial effusion. Minimal bibasilar atelectasis without consolidation or effusion. Fatty liver. Status post right mastectomy
== END 2018-02-20 21:15 | disposition home or self-care (01) ==
LOC: ED 17:23
DX: R07.9 Chest pain, unspecified (principal); R06.02 Shortness of breath; I10 Essential (primary) hypertension; E11.9 Type 2 diabetes mellitus without complications; Z79.899 Other long term (current) drug therapy; R51 Headache
CPT/HCPCS: 36415; 80053; 82550; 82803; 84484; 85025; 85379; 93005; 93010; 99285

== ENCOUNTER 2018-04-25 11:10 | Emergency (ER) ==
[2018-04-25 11:17] VITALS: BP 145/98; TEMP 97.8; BMI 26.5
--- NOTE | 2018-04-25 11:36 | ED.PDOC ---
General ED Provider: Dr. REBEL CONTRERAS Chief Complaint: Rash Stated Complaint: Patient is a 77 year old female who comes to the ER with complains of Itching "all over" That Started yesterday evening, She denies any rash and denies any exposure to any antigens that would cause it. Time Seen by Physician: 11:33 Mode of Arrival: Walk-In Information Source: Patient Exam Limitations: No limitations Primary Care Provider: EMMANUEL TATUM Nursing and Triage Documentation Reviewed and Agree: Yes Does patient meet sepsis criteria?: No System Inflammatory Response Syndrome: Not Applicable Sepsis Protocol: For patient's 13 years and over: Temp is 96.8 and below OR 101 and greater Pulse >90 BPM Resp >20/minute Acutely Altered Mental Status Are patient's symptoms suggestive of a new infection, such as: -Pneumonia -Skin, Soft Tissue -Endocarditis -UTI -Bone, Joint Infection -Implantable Device -Acute Abdominal Infection -Wound Infection -Meningitis -Blood Stream Catheter Infection -Unknown Review of Systems - Review Of Systems Constitutional: Reports: No symptoms Skin: Reports: Other (itching all over ) Neurological: Reports: Anxiety All Other Systems: Reviewed and Negative Past Medical History - Past Medical History Previously Healthy: Yes Endocrine: Reports: DM 2 Cardiovascular: Reports: Hypertension Respiratory: Reports: None Hematological: Reports: None Gastrointestinal: Reports: GERD Genitourinary: Reports: None Neuro/Psych: Reports: None Musculoskeletal: Reports: None Cancer: Reports: None Last Menstrual Period: unknown - Surgical History General Surgical History: Reports: None - Family History Family History: Reports: None - Social History Smoking Status: Never smoker Hx Substance Use: No Alcohol Screening: Occasionally Physical Exam - Physical Exam Appearance: Well-appearing Eyes: DEVANTE, EOMI, Conjunctiva clear ENT: Ears normal, Nose normal, Oropharynx normal Respiratory: Airway patent, Breath sounds clear, Breath sounds equal, Respirations nonlabored Cardiovascular: RRR, Pulses normal, No rub, No murmur GI/: Soft, Nontender, No masses, Bowel sounds normal, No Organomegaly Musculoskeletal: Normal strength, ROM intact, No edema, No calf tenderness Skin: Warm, Dry, Normal color Neurological: Sensation intact, Motor intact, Reflexes intact, Cranial nerves intact, Alert, Oriented Psychiatric: Anxious Critical Care Note - Critical Care Note Total Time (mins): 0 Course - Course Hematology/Chemistry: 04/25/18 11:55 04/25/18 11:55 Orders, Labs, Meds: Lab Review 04/25/18 04/25/18 11:55 11:55 WBC 11.38 H RBC 4.46 Hgb 13.0 Hct 39.6 MCV 88.8 MCH 29.1 MCHC 32.8 RDW Coeff of Misty 13.7 Plt Count 237 Immature Gran % (Auto) 0.5 Neut % (Auto) 70.4 Lymph % (Auto) 19.2 [place] % (Auto) 6.2 Eos % (Auto) 3.3 Baso % (Auto) 0.4 Immature Gran # (Auto) 0.1 Neut # (Auto) 8.0 H Lymph # (Auto) 2.2 [place] # (Auto) 0.7 Eos # (Auto) 0.4 Baso # (Auto) 0.1 Sodium 130.9 L Potassium 4.39 Chloride 94.9 L Carbon Dioxide 27.2 Anion Gap 13.19 BUN 13.1 Creatinine 0.89 Estimated GFR (MDRD) 62.00 BUN/Creatinine Ratio 14.71 Glucose 440.4 H Calcium 9.83 Total Bilirubin 0.86 AST 44.5 H ALT 33.3 Alkaline Phosphatase 98.6 Total Creatine Kinase 30.5 Troponin I < 0.012 Total Protein 7.41 Albumin 4.05 Globulin 3.36 Albumin/Globulin Ratio 1.20 Orders Category Date Time Status EKG-(ED ONLY) Stat CARDIO 04/25/18 11:46 Completed ED IV/MEDIPORT/POWERPORT .ONCE EMERGENCY 04/25/18 11:46 Active CBC W/ AUTO DIFF Stat LAB 04/25/18 11:55 Completed COMPREHENSIVE METABOLIC PANEL Stat LAB 04/25/18 11:55 Completed CREATINE KINASE Stat LAB 04/25/18 11:55 Completed TROPONIN I Stat LAB 04/25/18 11:55 Completed 0.9 % Sodium Chloride [Saline Flush] MEDS 04/25/18 11:46 Discontinued 1 syr IVF PRN PRN Loratadine [Claritin] MEDS 04/25/18 13:13 Discontinued 10 mg PO ONCE STA Methylprednisolone Sod Succ/Pf [Solu-Medrol 125 mg] MEDS 04/25/18 11:46 Discontinued 125 mg IVP ONCE STA Medications Discontinued Medications Generic Name Dose Route Start Last Admin Trade Name Freq PRN Reason Stop Dose Admin Loratadine 10 mg 04/25/18 13:13 04/25/18 13:47 Claritin PO 04/25/18 13:14 10 mg ONCE STA Administration Methylprednisolone Sodium Succinate 125 mg 04/25/18 11:46 04/25/18 12:34 Solu-Medrol 125 Mg IVP 04/25/18 11:47 Not Given ONCE STA Sodium Chloride 1 syr 04/25/18 11:46 Saline Flush IVF PRN PRN To flush IV Vital Signs: Temp Pulse Resp BP Pulse Ox 04/25/18 11:12 97.8 F 117 H 20 145/98 H 94 L Departure - Departure Time of Disposition: 14:20 Disposition: HOME SELF-CARE Discharge Problem: Generalized pruritus Instructions: Itchy Skin (ED) Condition: Stable Pt referred to PMD for follow-up: Yes IPMP verified?: No Additional Instructions: Take Medications as prescribed Follow up with PCP in 3 days Take over the counter claritin 10 mg daily until itching improves check your blood glucose as it is expected to go up with steroids. Prescriptions: Prednisone 20 mg PO DAILYWM #5 tablet Allergies/Adverse Reactions: Allergies albuterol Adverse Reaction (Verified 04/25/18 11:18) cefaclor [From Ceclor] Adverse Reaction (Verified 04/25/18 11:18) Home Medications: Ambulatory Orders Fluticasone/Salmeterol [Advair Hfa 115-21 Mcg Inhaler] 12 gm IH BID 08/16/13 Omeprazole [Prilosec] 20 mg PO BIDAC 08/16/13 Aspirin [Aspir-Low] 81 mg PO DAILY 05/13/17 Atorvastatin Calcium [Lipitor] 80 mg PO DAILY 05/13/17 Cholecalciferol (Vitamin D3) [Vitamin D3] 5,000 unit PO MONTHLY 05/13/17 Escitalopram Oxalate [Lexapro] 10 mg PO DAILY 05/13/17 Ferrous Sulfate 325 mg PO DAILY 05/13/17 Furosemide [Lasix Tab] 20 mg PO MOWEFR PRN 05/13/17 Isosorbide Mononitrate [Imdur] 30 mg PO DAILY 05/13/17 Linagliptin [Tradjenta] 5 mg PO DAILY 05/13/17 Metoprolol Tartrate 25 mg PO BID 05/13/17 Montelukast Sodium [Singulair] 10 mg PO BEDTIME 05/13/17 Tamoxifen Citrate 20 mg PO DAILY 05/13/17 Ticagrelor [Brilinta] 90 mg PO BID 05/13/17 Levothyroxine Sodium [Synthroid] 50 mcg PO QDAC 05/16/17 Calcium Carbonate/Vitamin D3 [Calcium 500 + Vit D3 400 Tab] 1 each PO DAILY Docusate Sodium [Colace] 100 mg PO DIRECTED 02/20/18 Ergocalciferol (Vitamin D2) [Drisdol] 50,000 unit PO DIRECTED 02/20/18 Hydrocodone Bit/Acetaminophen [[place] 7.5-325] 1 tab PO PRN PRN 02/20/18 Insulin Regular, Human [Humulin R U-500 Kwikpen] 50 unit SQ 1200 02/20/18 Insulin Regular, Human [Humulin R U-500 Kwikpen] 80 unit SQ 0800 02/20/18 Insulin Regular, Human [Humulin R U-500 Kwikpen] 80 unit SQ 1700 02/20/18 Nitroglycerin [Nitrostat] 0.4 mg SL Q5MIN X 3 DOSES PRN 02/20/18 Prednisone 20 mg PO DAILYWM #5 tablet 04/25/18
[2018-04-25] MEDS ORDERED: SOLU-MEDROL 125 MG IVP STA (11:46)
[2018-04-25] MEDS ORDERED: CLARITIN PO STA (13:13)
== END 2018-04-25 13:55 | disposition home or self-care (01) ==
LOC: ED 11:10
DX: R21 Rash and other nonspecific skin eruption (principal); L29.9 Pruritus, unspecified; F41.9 Anxiety disorder, unspecified
CPT/HCPCS: 36415; 80053; 82550; 84484; 85025; 93005; 93010; 96372; 99283

== ENCOUNTER 2018-04-30 12:20 | Outpatient (CLI) | END 2018-04-30 12:53 | disposition short-term general hospital (02) | LOC: AMBL 12:20 | PROVIDERS: ATTEND Emergency Medicine | DX: R73.9 Hyperglycemia, unspecified (principal) ==

== ENCOUNTER 2018-05-04 12:59 | Outpatient (CLI) | END 2018-05-04 13:24 | disposition short-term general hospital (02) | LOC: AMBL 12:59 | PROVIDERS: ATTEND Internal Medicine | DX: R07.9 Chest pain, unspecified (principal); R73.9 Hyperglycemia, unspecified ==

== ENCOUNTER 2018-06-17 13:37 | Outpatient (CLI) | END 2018-06-17 13:38 | disposition home or self-care (01) | LOC: NONPT 13:37 | PROVIDERS: ATTEND Family Medicine | DX: E11.22 Type 2 diabetes mellitus with diabetic chronic kidney disease (principal) | CPT/HCPCS: 81001 ==

== ENCOUNTER 2018-06-24 12:16 | Outpatient (CLI) | END 2018-06-24 12:17 | disposition home or self-care (01) | LOC: NONPT 12:16 | PROVIDERS: ATTEND Family Medicine | DX: E11.65 Type 2 diabetes mellitus with hyperglycemia (principal) | CPT/HCPCS: 83036 ==